=== PATIENT | male | born 1970 | race Caucasian/White ===

== ENCOUNTER 2016-10-07 21:38 | Emergency (ER) | payer MEDICARE ==
[~2016-10-07 21:38] MED LIST: ALBUTEROL17 GM INH; AMITIZA8 MCG; AMOXICILLIN875 MG PO; ANDROGEL75 GM; ATORVASTATIN CA10 MG; AVALIDE 300-12.1 TAB PO; BACTROBAN15 GM TOP; BENADRYL PO; BUPROPION HCL200 MG; CAPOZIDE PO; CHANTEX PO; CIPRO HC OTIC S10 ML OT; CLEOCIN HCL300 M1 PO; COLCRYS0.6 M2; DEPAKOTE ER250 MG; DIFLUCAN PO; DIFLUCAN100 MG PO; DIOVAN; DIOVAN PO; DIVALPROEX SOD500 M1 PO; DOXEPIN HCL100 MG; DULOXETINE HCL60 M1; EFFEXOR PO; EFFEXOR XR150 MG PO; EFFEXOR75 M2 PO; EFFEXOR75 MG; FENOFIBRATE160 MG PO; GLUCOTROL PO; HCTZ PO; HUMALOG100 U/M2; HYCODAN60 ML 5MG/ PO; IBUPROFEN PO; INVOKANA100 MG; KEFLEX500 M2 PO; LAMICTAL PO; LANTUS100 U/ML; LEXAPRO PO; LIDODERM30 EA TOP; LORAZEPAM1 MG; LORAZEPAM1 MG PO; METFORMIN HCL1000 M1 PO; METFORMIN HCL500 M2; METFORMIN PO; MOOD STABILIZER; MULTI ANTIBIOTI14 GM; NABUMETONE PO; NEURONTIN100 MG PO; NILSTAT1 ML; NIZORAL TOP; NORCO 5/325 TAB1 TAB PO; PREDNISONE PO; PREDNISONE10 MG PO; PROPRANOLOL HCL10 M1 PO; ROBAXIN 750750 MG PO; ROBAXIN PO; SEROQUEL PO; SEROQUEL400 MG; TESTOSTERON200 MG/ML; TRIGLIDE160 M1; TYLENOL #3 PO; VALSARTAN-HCTZ1 EAC4 PO; VALSARTAN320 MG; VIBRAMYCIN100 M1 PO; VITAMIN C; VOLTAREN75 MG PO; WELLBUTRIN PO; [UNRECOGNIZED DRUG - OTHER] PO
[2016-10-07] MEDS ORDERED: VITAMIN D400 UNI2 (21:54)
[2016-10-07] MEDS ORDERED: TOPAMAX (21:55)
[2016-10-07] MEDS ORDERED: MULTIVITAMINS1 EAC3 (21:55)
[2016-10-07] MEDS ORDERED: PERCOCET 7.5-31 EACH (21:55)
== END 2016-10-07 22:36 | disposition home or self-care (01) ==
LOC: SED 21:38
DX: S86.911A Strain of unspecified muscle(s) and tendon(s) at lower leg level, right leg, initial encounter (principal); S96.911A Strain of unspecified muscle and tendon at ankle and foot level, right foot, initial encounter; F17.210 Nicotine dependence, cigarettes, uncomplicated; X50.1XXA Overexertion from prolonged static or awkward postures, initial encounter; Y92.9 Unspecified place or not applicable
CPT/HCPCS: 29530; 99283

== ENCOUNTER 2016-11-17 15:55 | Emergency (ER) | payer MEDICARE ==
--- NOTE | ~2016-11-17 | CR133 ---
[facility]. [facility] A Service of [facility] & [facility] RADIOLOGY TEXT RESULTS PATIENT: FERNANDA CODY LOCATION: SED : 68 UNIT #: [id number] AGE: [address]: ALBERT SANCHEZ SEX: M ORDER DR: [id number] [place] [id number] E MR#: [id number] Acc #: [id number] NAME: FERNANDA CODY : 1970 SEX: M STUDY DATE/TIME: 11/17/2016 16:53 UNIT: SED ROOM: STUDY DESCRIPTION: CR Forearm 2 View Rt Attending Physician: Albert Sanchez Aprn Ordering Physician: Pete Bruce Primary Care Physician: Fran Bunch M.D. MEDICAL IMAGING REPORT This report is preliminary unless electronic signature is present. EXAM Right forearm, 2 views, 11/17/2016. HISTORY Right forearm pain beginning this morning. No known injury. FINDINGS AP and lateral views of the forearm show no evidence of fracture or destructive bone lesion. No periosteal elevation is seen. No radiodense foreign bodies are noted. Adjacent soft tissue structures are normal. IMPRESSION Normal forearm. Dictated by... Shankar Garcia M.D. THIS IS AN ELECTRONICALLY VERIFIED REPORT Shankar Garcia M.D. at 11/18/2016 2:11 PM ALBERTO/asim TD: 11/18/2016 09:32 JOB #: [id number] MEDICAL IMAGING REPORT Page 1 of 1
[~2016-11-17 15:55] MED LIST changes: +MULTIVITAMINS1 EAC3; +PERCOCET 7.5-31 EACH; +TOPAMAX; +VITAMIN D400 UNI2
== END 2016-11-17 17:49 | disposition home or self-care (01) ==
LOC: SED 15:55
DX: M77.9 Enthesopathy, unspecified (principal); E11.9 Type 2 diabetes mellitus without complications; Z98.890 Other specified postprocedural states; F17.200 Nicotine dependence, unspecified, uncomplicated; Z79.899 Other long term (current) drug therapy; Z79.4 Long term (current) use of insulin
CPT/HCPCS: 29125; 73090; 96372; 99283; J1885